=== PATIENT | female | born 1980 | race African-American/Black ===

== ENCOUNTER 2022-02-03 13:40 | Emergency (ER) | payer OTHER ==
[~2022-02-03] VITALS: Ht 170.2 cm; Wt 100.0 kg
[2022-02-03] MEDS ORDERED: FLUC100T68 PO (13:43)
[2022-02-03] MEDS ORDERED: MORPHINE SULFATE 4 MG/ML SYRINGE IM ONE (15:15)
[2022-02-03 15:25] VITALS: BP 142/91
[2022-02-03] MEDS ORDERED: BACL10TA PO (15:41)
== END 2022-02-03 16:15 | disposition home or self-care (01) ==
LOC: EMS 13:45
DX: M54.9 Dorsalgia, unspecified (principal); Z88.0 Allergy status to penicillin
CPT/HCPCS: 96372; 99283; J2270